=== PATIENT | female | born 1945 | race Caucasian/White ===

== ENCOUNTER → 2022-11-27 09:13 | Outpatient (CLI) | payer MEDICARE, SELFPAY ==
--- NOTE | 2022-11-27 | DI.NM.S_ITS ---
PROCEDURE: NM DANYA PERF SPECT R&S PHARM Rest and pharmacological stress myocardial perfusion SPECT with gated imaging and ejection fraction RADIOPHARMACEUTICAL: 12.2 mCi Tc-99m tetrafosmin IV at rest and 25.7 mCi Tc-99m tetrafosmin IV at peak effect of pharmacological stress. [id number] was performed. INDICATIONS: Syncope and collapse TECHNIQUE: Radiopharmaceutical was injected at peak stress test, and also at rest. SPECT images were obtained. SPECT myocardial perfusion images were displayed in short axis, horizontal long axis, and vertical long axis views. Gated images were reviewed using [employer] software. COMPARISON: None. CARDIAC STRESS: A pharmacologic stress test was performed under the supervision of an attending staff, using an infusion of lexiscan 0.4mg IV X1. Hemodynamic data: There is normal blood pressure and heart rate response to pharmacologic stress. Symptoms: The patient denied anginal chest pain. Aminophylline: none EKG: No diagnostic changes of ischemia; no ectopy. FINDINGS: Raw data: There is good myocardial uptake of radiotracer. No significant motion artifacts. Cpzs-rt-juubz ratio is 0.25 (normal is less than 0.38 for tetrafosmin tracer). Left ventricle function: Gated images demonstrate normal left ventricular wall thickening. No segmental wall motion abnormalities. No transient ischemic dilation; TID is 0.93 (normal less than 1.3). Left ventricle resting end diastolic volume is 57mL. Left ventricle stress ejection fraction is 91%; normal range is above 45%. Myocardial perfusion: There is a mildly intense distal anterior wall defect at rest that improves significantly with stress imaging, suggesting breast attenuation artifact. Mildly intense predominantly fixed apical tip defect that is probably apical thinning defect but old small non-transmural infarction can't be excluded. No significant ischemia. IMPRESSION: Low risk, probably normal pharmaceutical nuclear stress test 1) There is a mildly intense distal anterior wall defect at rest that improves significantly with stress imaging, suggesting breast attenuation artifact. Mildly intense predominantly fixed apical tip defect that is probably apical thinning defect but old small non-transmural infarction can't be excluded. No significant ischemia. 2) Normal left ventricular size, wall motion, and systolic function (EF post stress 91%). 3) No ST changes with lexiscan. 4) No angina during the study. 5) No prior nuclear stress test available for comparison. Dictated by: Terry Love MD on 11/28/2022 at 12:46 Approved by: Terry Love MD on 11/28/2022 at 12:50
--- NOTE | 2022-11-27 | DI.ECHO.S_ITS ---
Center +---------+ Hospital +---------+ : : [address] : [place] : : : : [id number] : : : : Phone: [phone]+ Echocardiogram Report + + :Name: BEBEOT DUNCAN Study Date: 11/27/2022 Height: 69 in : :[facility] ReadingLocation: Weight: 168 lb : : Gender: Female BSA: 1.9 m2 : :: 1945 Age: 77 yrs BP: 155/85 mmHg: :Reason For Study: SYNCOPE AND COLLAPSE : :Ordering Physician: ROD, : :AMBIKA Carson Performed By: Sujata Kuhn : :Referring: AMBIKA CAN : + + Interpretation Summary The ejection fraction is estimated to be 60-65%. Diastolic parameters suggest probable normal left ventricular diastolic function and normal filling pressures. The right ventricle is normal in size and function. No significant valvular abnormalities. Unable to estimate PASP. Procedure: A two-dimensional transthoracic echocardiogram with color flow and Doppler was performed. The study quality was technically adequate. There is no prior echocardiogram noted for this patient. The patient was in sinus rhythm with heart rates between 61-68 bpm during the exam. Left Ventricle: The left ventricle is normal in size and wall thickness. The ejection fraction is estimated to be 60-65%. Diastolic parameters suggest probable normal left ventricular diastolic function and normal filling pressures. Right Ventricle: The right ventricle is normal in size and function. Atria: The left atrial size is normal. Right atrial size is normal. There is no Doppler evidence for an interatrial shunt. Mitral Valve: The mitral valve is normal in structure and function. There is trace mitral regurgitation. Aortic Valve: The aortic valve is trileaflet. The aortic valve opens well. There is no aortic valve stenosis. No aortic regurgitation is present. Tricuspid Valve: The tricuspid valve is normal in structure and function. There is trace tricuspid regurgitation. Pulmonary artery pressures cannot be estimated because of the lack of a measurable TR jet velocity. Pulmonic Valve: The pulmonic valve leaflets are thin and pliable; valve motion is normal. There is a trace or physiologic amount of pulmonic regurgitation. Great Vessels: The aortic root is normal size. The dimensions of the ascending aorta are normal. The IVC is of normal diameter and collapses greater than 50% with a sniff. This suggests a low right atrial pressure of 3 mm Hg. Pericardium/ Pleura There is no pericardial effusion. There is no pleural effusion. MMode/2D Measurements & Calculations LVIDd: 4.1 cm LVOT diam: 2.0 cm LVIDs: 2.4 cm Ao root diam: 2.8 cm FS: 41.2 % asc Aorta Diam: 3.4 cm IVSd: 0.81 cm Ao Arch Diam (Prox Trans): 2.6 cm LVPWd: 0.80 cm LV luna. diameter/BSA (cm/m^2): 2.1 LV sys. diameter/BSA (cm/m^2): 1.3 LA A2 area: 12.6 cm2 RA long axis: 4.6 cm LA A4 area: 11.0 cm2 RA area: 12.4 cm2 LA length (vol): 3.8 cm RA vol: 28.3 ml LA vol: 30.8 ml RA : 14.7 ml/m2 LA vol index: 16.0 ml/m2 IVC diam: 1.1 cm RVD1 (basal): 3.0 cm RVD2 (mid): 2.8 cm TAPSE: 2.0 cm Doppler Measurements & Calculations Ao V2 max: 142.2 cm/sec LVOT Max Alpesh: 124.5 cm/sec Ao V2 mean: 112.4 cm/sec LV V1 max P.2 mmHg Ao max P.1 mmHg LV V1 VTI: 26.8 cm Ao mean P.3 mmHg LEXIE(I,D): 2.5 cm2 Ao V2 VTI: 33.8 cm LEXIE(V,D): 2.8 cm2 sev ratio: 0.79 LEXIE indexed to BSA (cm^2/m^2): 1.3 MV E max alpesh: 60.4 cm/sec PA V2 max: 81.9 cm/sec MV A max alpesh: 86.8 cm/sec PA V2 mean: 54.7 cm/sec MV E/A: 0.70 PA mean P.4 mmHg Med Peak E' Alpesh: 7.6 cm/sec PA pr(Accel): 41.3 mmHg E/E' med: 8.0 Lat Peak E' Alpesh: 5.7 cm/sec E/E' lat: 10.5 E/e' average: 9.3 MV dec time: 0.25 sec [facility]): 84.2 ml Reading Physician:01:17 PM
== END ==
PROVIDERS: PCP Internal Medicine; Referring Provider Internal Medicine Cardiovascular Disease; Visit Provider Internal Medicine Cardiovascular Disease
DX: R55 Syncope and collapse (principal)
CPT/HCPCS: 78452; 93017; 93306; A9502; J2785